=== PATIENT | male | born 1990 | race Two or more races ===

== ENCOUNTER → 2025-09-17 | Outpatient (CLI) | payer OTHER, SELFPAY ==
[2025-09-17 16:13] LABS: Mucous, Urine 0 SEEN /hpf (<or=2+)
[2025-09-17 17:50] LABS: Hematocrit 45.5 % (40-54); Hemoglobin 16.5 g/dL (13.0-16.5); Immature Granulocytes Count 0.020 X10^3/uL (0.0-0.0); Mean Corp Hgb Conc 36.3 g/dL (32-36); Mean Corpuscular Volume 82.3 fL (80-94); Mean Platelet Vol. 11.8 fl (6.2-12.0); NRBC Flagged by Analyzer 0 % (0-5); Platelet Count 234 K/mm3 (150-450); RBC Distribution Width CV 12.6 % (11.6-14.6); RBC Distribution Width SD 37.7 fl (35.1-43.9); Red Blood Count 5.53 M/mm3 (4.6-6.2); White Blood Count 7.0 K/mm3 (4.4-11.0)
[2025-09-17 18:32] LABS: AST(SGOT) 31 U/L (<=37); Alanine Aminotransfer ALT/SGPT 52 U/L (<=46); Albumin, Serum 4.3 g/dL (3.5-5.0); Alkaline Phosphatase 70 U/L (40-129); Anion Gap 9 (5-15); BUN 13 mg/dL (4-19); BUN/Creat Ratio 13.9 RATIO (10-20); Calcium,Total 9.2 mg/dL (7.6-11.0); Carbon Dioxide 22.6 mmol/L (21.0-32.0); Chloride 105 mmol/L (98-108); Cholesterol 217 mg/dL (<=200); Globulin 2.9 g/dL (2.2-4.2); Glucose 93 mg/dL (70-99); Low Density Lipoprotein Calc. 156 mg/dL; Magnesium 2.1 mg/dL (1.5-2.2); Potassium 3.9 mmol/L (3.3-5.1); Triglycerides 146 mg/dL; Very Low Density Lipoprotein 29 mg/dL (5-40); Vitamin B12 610 pg/mL (180-914); Vitamin D,25 Hydroxy 37.3 ng/mL (30-100); cholesterol:hdl ratio screen 6.25
[2025-09-17 18:34] LABS: Color, Urine Yellow (Yellow); Glucose, Dipstick Normal (Normal); Ketone-Dipstick Negative (Negative); Leukocyte Esterase-Dipstick Negative /ul (Negative); Nitrite-Dipstick Negative (Negative); Occult Blood-Urine Negative /ul (Negative); Protein-Dipstick 15 mg/dl (Negative); Specific Gravity, Urine 1.020 (1.002-1.030); Urine Bilirubin Dipstick Negative (Negative)
[2025-09-17 21:05] LABS: Red Blood Cells-Urine 0-5 SEEN /hpf (0-5); Squamous Epithelial Cells - UA 0-5 SEEN /hpf (0-5)
[2025-09-20 07:08] LABS: Thyroid Stim Immunoglob <0.10 IU/L (0.00-0.55)
== END | disposition home or self-care (01) ==
LOC: MFPLAB 16:08
PROVIDERS: Visit Provider Family Medicine
DX: I10 Essential (primary) hypertension (principal); R53.83 Other fatigue; E01.0 Iodine-deficiency related diffuse (endemic) goiter
CPT/HCPCS: 36415; 80053; 80061; 81001; 82306; 82607; 83735; 84439; 84443; 84445; 85025; 86376; 86800